=== PATIENT | female | born 1990 | race Caucasian/White ===

== ENCOUNTER 2016-05-02 07:44 | Emergency (ER) | payer MEDICAID ==
[~2016-05-02] VITALS: Wt 59.0 kg
[2016-05-02 07:47] VITALS: Wt 59.0 kg
[2016-05-02] MEDS ORDERED: IBUPROFEN 800 MG TAB PO ONE (08:30)
--- NOTE | 2016-05-02 08:42 | RADRPT ---
PROCEDURE: XR Chest. CLINICAL INDICATION: Chest pain TECHNIQUE: Chest AP portable. COMPARISON: No comparison available. FINDINGS: The mediastinal structures are unremarkable. The heart is normal in size and configuration. The pu lmonary vascularity is normal. The lung boyle are unremarkable. No consolidation is identified. The pleural spaces are unremarkable. The axial skeleton is unremarkable. IMPRESSION: No active intrathoracic disease. RPTAT: HGDB .Darci Matias MD, MD Date Time Electronically viewed and signed by .Darci Matias MD, on 05/02/2016 08:42 .B/
[2016-05-02] MEDS ORDERED: IBUP-1542 PO (08:55)
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
== END 2016-05-02 09:10 | disposition home or self-care (01) ==
LOC: FTE 07:44
DX: S20.211A Contusion of right front wall of thorax, initial encounter (principal); V87.7XXA Person injured in collision between other specified motor vehicles (traffic), initial encounter
CPT/HCPCS: 71010; 93005; Z7502; Z7610